=== PATIENT | female | born 2000 ===

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

== ENCOUNTER 2022-12-23 07:29 | Emergency (ER) | payer OTHER ==
[~2022-12-23] VITALS: Ht 177.8 cm; Wt 108.9 kg
== END 2022-12-23 10:41 | disposition home or self-care (01) ==
LOC: ER 07:29
PROVIDERS: Emergency Medicine
DX: B34.9 Viral infection, unspecified (principal); Z20.822 Contact with and (suspected) exposure to COVID-19